=== PATIENT | male | born 1980 | race African-American/Black ===

== ENCOUNTER → 2024-11-11 | Outpatient (CLI) | payer MEDICAID, OTHER ==
--- NOTE | 2024-11-11 10:00 | US ---
EXAMINATION TYPE: US scrotum with doppler. 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 FINDINGS: EXAM MEASUREMENTS: TESTICLES: Right Testicle: 4.5 x 2.5 x 2.2 cm Left Testicle: 4.5 x 2.9 x 2.3 cm EPIDIDYMIS HEAD: Right Epididymis: 0.9 cm Left Epididymis: 0.9 cm Doppler performed to assess for testicular vascularity; good bilateral color flow and spectral wavefo sravanthi are seen. There is no evidence of testicular torsion. Presence of hydroceles: small bilaterally Presence of varicoceles: Vessels on left side appear dilated before valsalva. Isoechoic area seen adjacent to left testicle, probable appendix testis. IMPRESSION: 1. Appropriate arterial and venous spectral waveforms to the testes. 2. Left varicocele. 3. No intratesticular mass. [facility], , 11/11/2024 9:57 AM
== END | disposition home or self-care (01) ==
LOC: RADUSWWP 07:28
PROVIDERS: ATTEND Family Medicine
DX: K40.00 Bilateral inguinal hernia, with obstruction, without gangrene, not specified as recurrent (principal); I86.1 Scrotal varices
CPT/HCPCS: 76870; 93975